=== PATIENT | female | born 1985 | race Caucasian/White ===

== ENCOUNTER 2023-09-15 11:30 | Emergency (ER) | payer BC, SELFPAY ==
[2023-09-15 12:03] VITALS: BP 155/75; PULSE 90; RESP 16; TEMP 37.2; O2SAT 99
--- NOTE | 2023-09-15 12:21 | ED.GENADULT ---
HPI - General Adult General Chief complaint: Upper Respiratory Infection Stated complaint: sorethroat Source: patient Mode of arrival: ambulatory Limitations: no limitations History of Present Illness HPI narrative: Patient presents for evaluation of sore throat since this morning. She indicates that last night she felt like her throat was dry. Two days ago she was exposed to someone that had strep while she was at work. She denies any fever, chills, nausea, vomiting, cough, shortness of breath. She is not taking any medications to assist with her symptoms. She has a history of strep and this feels similar. She quit smoking about 1 month ago. Related Data Home Medications Medication Instructions Recorded Confirmed amitriptyline 50 mg tablet 50 mg PO DIRECTED 09/15/23 09/15/23 bupropion HCl 300 mg 24 hr tablet, 300 mg PO DAILY 09/15/23 09/15/23 extended release hydroxyzine HCl 50 mg tablet 50 mg PO DAILY 09/15/23 09/15/23 lithium carbonate 300 mg capsule 300 mg PO DIRECTED 09/15/23 09/15/23 propranolol 10 mg tablet 10 mg PO DIRECTED 09/15/23 09/15/23 quetiapine 50 mg tablet 50 mg PO DIRECTED 09/15/23 09/15/23 zolpidem 5 mg tablet 5 mg PO HS PRN Insomnia 09/15/23 09/15/23 Allergies Allergy/AdvReac Type Severity Reaction Status Date / Time No Known Allergies Allergy Verified 09/15/23 12:06 Review of Systems Review of Systems: CONSTITUTIONAL: Denies fever, chills, or sweats. EYES: Denies visual changes, redness, or discharge. ENT: Reports sore throat. Denies rhinorrhea, congestion, or otalgia. CARDIOVASCULAR: Denies chest pain, palpitations, or edema. RESPIRATORY: Denies cough or dyspnea. GASTROINTESTINAL: Denies abdominal pain, nausea, vomiting, or diarrhea. GENITOURINARY: Denies dysuria or hematuria. SKIN: Denies rash or itching. MUSCULOSKELETAL: Denies back pain, joint pain, or myalgia. NEUROLOGIC: Denies headache, numbness, dizziness, or weakness. PSYCHIATRIC: Denies anxiety or depression. [facility] Past Medical History Medical History Anxiety Bipolar disorder Surgical History Surgical History History of hysterectomy Family History Family History Mother Family history non-contributory Social History Social History Smoking status: Former smoker Tobacco type: cigarettes Living arrangements: with family Gender identity (if verbalized by the patient): Female Spiritual care concerns: No Exam Narrative: GENERAL: Well-appearing, well-nourished, and in no acute distress. HEAD: Normocephalic, atraumatic. EYES: PERRLA and EOMI. ENT: Nares clear, no rhinorrhea or epistaxis. Mucous membranes moist. Bilateral tonsillar swelling without erythema or exudate. Uvula is midline.. Bilateral TMs pearly flor nonbulging NECK: Supple. No adenopathy or masses. No carotid bruits or JVD CHEST: Clear to auscultation. No respiratory distress. No wheezes rales or rhonchi HEART: Regular rate and rhythm. No murmur heard. Normal peripheral pulses. ABDOMEN: Soft, nontender, nondistended, normal active bowel sounds. EXTREMITIES: Normal range of motion. No edema. SKIN: Warm, dry, no rash. NEURO: No focal deficits. Alert and oriented x3. PSYCH: Normal mood and affect. Course Course Emergency Course: This is a 38-year-old female who presented for evaluation of a sore throat after recent strep exposure. Her strep here was negative. Through shared decision making opted to proceed with antibiotic therapy due to history of strep with this feeling similar and in the setting of recent strep exposure. Will treat with amoxicillin. Increase hydration. [id number] agents for symptom management. Follow up with primary provider. Go to the ER for wors
== END 2023-09-15 12:20 | disposition home or self-care (01) ==
PROVIDERS: Emergency Provider Nurse Practitioner
DX: J02.9 Acute pharyngitis, unspecified (principal); Z20.818 Contact with and (suspected) exposure to other bacterial communicable diseases; Z87.891 Personal history of nicotine dependence; F41.9 Anxiety disorder, unspecified; F31.9 Bipolar disorder, unspecified
CPT/HCPCS: 87081; 87880; 99203; G0463